=== PATIENT | female | born 1950 | race Caucasian/White ===

== ENCOUNTER 2021-04-11 10:52 | Inpatient (IN) | payer MEDICARE, BC ==
[2021-04-06 15:39] LABS: BASOPHILS % (AUTO) 0.7 % (0-1); EOSINOPHILS # (AUTO) 0.1 X10'3 (0-0.9); EOSINOPHILS % (AUTO) 1.1 % (0-6); HEMATOCRIT 39.4 % (35.0-45.0); HEMOGLOBIN 13.3 g/dl (12.0-16.0); LYMPHOCYTES # (AUTO) 1.3 X10'3 (1.1-4.8); LYMPHOCYTES % (AUTO) 24.9 % (21-51); MEAN CORPUSCULAR HEMOGLOBIN 29.5 PG (27.0-31.0); MEAN CORPUSCULAR HGB CONC 33.8 g/dL (33.0-36.5); MEAN CORPUSCULAR VOLUME 87.3 FL (78-98); MEAN PLATELET VOLUME 7.6 FL (7.4-10.4); MONOCYTES # (AUTO) 0.5 X10'3 (0-0.9); NEUTROPHILS # (AUTO) 3.3 X10'3 (1.8-7.7); NEUTROPHILS % (AUTO) 64.3 % (42-75); PLATELET COUNT 217 X10'3 (140-440); RED BLOOD COUNT 4.52 X10'6 (4.20-5.60); RED CELL DISTRIBUTION WIDTH 14.1 % (11.5-14.5); WHITE BLOOD COUNT 5.1 X10'3 (4.5-11.0)
[2021-04-06 15:47] LABS: ALBUMIN 3.7 G/DL (3.4-5.0); ANION GAP 5 (8-16); BLOOD UREA NITROGEN 24 MG/DL (7-18); BUN/CREATININE RATIO 28.9 (6.6-38.0); CALCIUM 9.2 MG/DL (8.5-10.1); CHLORIDE 104 MMOL/L (99-107); CREATININE 0.83 MG/DL (0.40-0.90); GLUCOSE 97 MG/DL (70-104); SODIUM 139 MMOL/L (135-145); TOTAL CARBON DIOXIDE 29.8 MMOL/L (24-32); eGFR 68 ML/MIN
[2021-04-06 15:49] LABS: APTT 27 SECONDS (22-32)
[~2021-04-11] VITALS: Ht 160 cm; Wt 69.3 kg
[2021-04-11] VITALS (10 sets, daily range): BP systolic 125–164; BP diastolic 66–93
[2021-04-11] MEDS ORDERED: NO HOME MEDS (11:06)
[2021-04-11] MEDS ORDERED: LORazepam 0.5 MG tablet PO PRN (11:20)
[2021-04-11] MEDS ORDERED: diphenhydrAMINE 25mg capsule PO PRN (11:20)
[2021-04-11] MEDS ORDERED: LIDOcaine/PRILOcaine 5gm cream TP ONE (11:30)
[2021-04-11] MEDS: normal saline 1,000 ML IV SCH ×3 (11:31→16:34)
[2021-04-11] MEDS ORDERED: nitroGLYCERIN-Tridil 50MG/D5W 250 ML IV ONE (12:09)
[2021-04-11] MEDS ORDERED: fentaNYL/PF 50MCG/1 ML 2ML syringe ONE (12:10)
[2021-04-11] MEDS ORDERED: midazolam 1 mg/ML 2ml injection ONE (12:10)
[2021-04-11] MEDS ORDERED: verapamil 2.5 mg/ml inj IV ONE (12:10)
[2021-04-11] MEDS ORDERED: LIDOcaine 1% (10mg/ml)w/preservative injection 20ml MDV ONE (12:10)
[2021-04-11] MEDS ORDERED: heparin 1,000unit/ml 10ml vial 10 ML ONE (12:10)
[2021-04-11] MEDS ORDERED: iohexol 350MG/ML 100ml bottle IV ONE (12:10)
[2021-04-11] MEDS ORDERED: iohexol 350 MG/ML 50ML vial IV ONE (13:26)
[2021-04-11] MEDS ORDERED: ondansetron/PF 4mg/2ml inj IV PRN (14:30)
[2021-04-11] MEDS ORDERED: OXAZEpam 15mg capsule PO PRN (14:30)
[2021-04-11] MEDS ORDERED: HYDROcodone/acetaminophen 5mg/325mg tablet PO PRN (14:30)
[2021-04-11] MEDS ORDERED: proCHLORperazine 10 MG/2 ml inj IV PRN (14:30)
[2021-04-11] MEDS ORDERED: HYDROcodone/acetaminophen 10/325mg tab PO PRN (14:30)
--- NOTE | 2021-04-11 16:15 | NUR ---
Report received from Viviane CRUZ. Patient is alert and orientated x4. Right wrist pressure dressing intact. Vital signs stable. Re-enforced to not lift with right hand. Normal saline infusing 100ml/hr as per order.
[2021-04-11 16:59] LABS: ABG BASE EXCESS 0.3 mmol/L (-2.0-2.0); ABG HCO3 24.6 mmol/L (22.0-26.0); ABG OXYGEN SATURATION 96.7 % (94-97); ABG PCO2 (T) 38.7 mmHg (32.0-45.0); ABG PO2 (T) 85.1 mmHg (75.0-100.0); ALLEN'S TEST POSITIVE; FCOHb 0.2 % (0.0-3.9); FMetHb 0.4 % (0.0-1.5); FO2Hb 96.1 % (94-97); TOTAL HEMOGLOBIN 13.5 G/dl (12.0-16.0)
--- NOTE | 2021-04-11 18:00 | NUR ---
Problems reprioritized. Patient report given, questions answered & plan of care reviewed with Janeen CRUZ.
[2021-04-12] VITALS (21 sets, daily range): BP systolic 91–154; BP diastolic 49–89
--- NOTE | 2021-04-12 01:16 | NUR ---
Patient states that she has spoken to anesthesiologist So, Patient states she would like to speak to anesthesiologist before the procedure.
[2021-04-12] MEDS ORDERED: ringers solution, lacted 1,000 ML IV SCH (05:00)
[2021-04-12] MEDS ORDERED: cefazolin/dext.iso 2gm/50ml IV ONE (05:30)
[2021-04-12] MEDS ORDERED: gabapentin 400mg capsule PO ONE (05:30)
[2021-04-12] MEDS ORDERED: VANCOMYCIN INJ 1000 MG in NORMAL SALINE 250ml IV.SOLN IV ONE (05:30)
[2021-04-12] MEDS ORDERED: mupirocin 2% nasal ointment 1gm UD NS ONE (05:30)
[2021-04-12] MEDS ORDERED: metoprolol tartrate 12.5mg (1/2 tablet) PO ONE (05:30)
[2021-04-12] MEDS ORDERED: DOCUMENT DATE & TIME OF BETA-BLOCKER PO ONE (05:30)
[2021-04-12] MEDS ORDERED: dextrose 50%-water 50ml dispensing syringe IV PRN ×2 (05:30→10:50)
[2021-04-12] MEDS ORDERED: insulin glargine (Lantus) pen - multi-dose SQ PRN ×2 (05:30→10:50)
[2021-04-12] MEDS ORDERED: Insulin Reg/NS 100units/100mL 100 ML IV SCH (05:30)
[2021-04-12] MEDS ORDERED: epiNEPHrine 1 mg/ml inj ONE (05:32)
[2021-04-12] MEDS ORDERED: ceFAZolin 1000mg inj ONE (05:32)
--- NOTE | 2021-04-12 05:33 | NUR ---
Metoprolol and Gabapentin taken at 0534 AM
--- NOTE | 2021-04-12 06:05 | NUR ---
Patient in room PCU 3015. I have received report from Janeen CRUZ and had the opportunity to ask questions and assume patient care.
[2021-04-12] MEDS ORDERED: MALTODEXTRIN/FRUCTOSE 0.68 KCAL/ML LIQUID 296ML BOTTLE PO ONE (06:30)
[2021-04-12 07:02] LABS: BASOPHILS % (AUTO) 0.8 % (0-1); EOSINOPHILS # (AUTO) 0.1 X10'3 (0-0.9); EOSINOPHILS % (AUTO) 1.3 % (0-6); HEMATOCRIT 38.5 % (35.0-45.0); HEMOGLOBIN 12.9 g/dl (12.0-16.0); LYMPHOCYTES # (AUTO) 1.4 X10'3 (1.1-4.8); LYMPHOCYTES % (AUTO) 33.3 % (21-51); MEAN CORPUSCULAR HEMOGLOBIN 29.6 PG (27.0-31.0); MEAN CORPUSCULAR HGB CONC 33.6 g/dL (33.0-36.5); MEAN CORPUSCULAR VOLUME 88.1 FL (78-98); MEAN PLATELET VOLUME 7.8 FL (7.4-10.4); MONOCYTES # (AUTO) 0.4 X10'3 (0-0.9); MONOCYTES % (AUTO) 8.4 % (2-12); NEUTROPHILS # (AUTO) 2.4 X10'3 (1.8-7.7); NEUTROPHILS % (AUTO) 56.2 % (42-75); PLATELET COUNT 188 X10'3 (140-440); RED BLOOD COUNT 4.36 X10'6 (4.20-5.60); RED CELL DISTRIBUTION WIDTH 14.5 % (11.5-14.5); WHITE BLOOD COUNT 4.3 X10'3 (4.5-11.0)
[2021-04-12 07:29] LABS: ALBUMIN 3.5 G/DL (3.4-5.0); ANION GAP 4 (8-16); BLOOD UREA NITROGEN 16 MG/DL (7-18); BUN/CREATININE RATIO 27.6 (6.6-38.0); CALCIUM 8.7 MG/DL (8.5-10.1); CHLORIDE 109 MMOL/L (99-107); CHOL/HDL RATIO 3.8 (0.00-4.99); CHOLESTEROL 261 MG/DL (0-200); CREATININE 0.58 MG/DL (0.40-0.90); GLUCOSE 98 MG/DL (70-104); HDL CHOLESTEROL 68 MG/DL (35-60); LDL CHOLESTEROL 142 MG/DL (50-100); SODIUM 142 MMOL/L (135-145); TOTAL CARBON DIOXIDE 28.8 MMOL/L (24-32); TRIGLYCERIDES 103 MG/DL (20-135); eGFR > 90 ML/MIN
[2021-04-12] MEDS ORDERED: LORazepam 2 mg/ml vial ONE (07:30)
--- NOTE | 2021-04-12 07:50 | NUR ---
Pt taken down to [facility]OR by OR team.
[2021-04-12] MEDS ORDERED: NORepinephrine 8 MG in NS 250 ML BAG (32 mcg/ml) IV ONE (07:52)
[2021-04-12] MEDS ORDERED: protamine sulf. 10mg/ml inj. IV ONE (07:52)
[2021-04-12] MEDS ORDERED: isoflurane 100ml inhalation liquid IH ONE (07:52)
[2021-04-12] MEDS ORDERED: nitroGLYCERIN in D5W 50mg/250ml (Tridil) infusion IV ONE (07:52)
[2021-04-12] MEDS ORDERED: SUFENTANIL CITRATE 50 MCG/ML 2ml ampule IV ONE (08:00)
[2021-04-12] MEDS ORDERED: calcium chloride 100 MG/1 ML inj IV ONE (08:00)
[2021-04-12] MEDS ORDERED: heparin 10,000 units/1 ML INJ ONE (08:00)
[2021-04-12] MEDS ORDERED: potassium Cl 2 mEq/ml inj IV ONE (08:00)
[2021-04-12] MEDS ORDERED: sodium bicarbonate (8.4%) 1 mEq/ml syringe ONE (08:00)
[2021-04-12] MEDS ORDERED: methylPREDNISolone sod succ 1000mg vial ONE (08:00)
[2021-04-12] MEDS ORDERED: aminocaproic acid 250 MG/1 ML inj. ONE (08:00)
[2021-04-12] MEDS ORDERED: LIDOcaine 2% (20 mg/ml) 5ml cardiac syringe ONE (08:00)
[2021-04-12] MEDS ORDERED: heparin 1,000 units/ml 10ml inj ONE (08:00)
[2021-04-12] MEDS ORDERED: midazolam 1 mg/ML 2ml injection ONE (08:00)
[2021-04-12] MEDS ORDERED: NORepinephrine bitart. inj. IV ONE (08:00)
[2021-04-12] MEDS ORDERED: magnesium 1 GM/2 ML inj ONE (08:00)
[2021-04-12] MEDS ORDERED: propofol inj 20 ML IV ONE (08:18)
[2021-04-12] MEDS ORDERED: rocuronium 10mg/ml inj IV ONE (08:18)
[2021-04-12] MEDS ORDERED: LIDOcaine 2% (20mg/ml) 5ml vial ONE (08:18)
[2021-04-12 08:46] LABS: ABG BASE EXCESS -0.8 mmol/L (-2.0-2.0); ABG HCO3 22.5 mmol/L (22.0-26.0); ABG PCO2 32.8 mmHg (32.0-45.0); ABG PO2 139.3 mmHg (75.0-100.0); CL (ABG) 108 mmol/L (98-110); FCOHb 0.1 % (0.0-3.9); FMetHb 0.3 % (0.0-1.5); FO2Hb 98.6 % (94-97); GLUCOSE (ABG) 101 mg/dl (70-105); IONIZED CA (ABG) 1.13 mmol/L (1.10-1.43); K (ABG) 3.2 mmol/L (3.5-5.0); TOTAL HEMOGLOBIN 11.3 G/dl (12.0-16.0)
[2021-04-12 09:15] LABS: ACT @ 1.70 U 307 SEC (193-297); ACT @ 2.84 U 462 SEC (260-420); BASELINE ACT 133 SEC (101-148); PATIENT WEIGHT 62.0k KG
[2021-04-12 09:18] LABS: ABG BASE EXCESS 2.6 mmol/L (-2.0-2.0); ABG HCO3 25.9 mmol/L (22.0-26.0); ABG OXYGEN SATURATION 99.5 % (94-97); ABG PCO2 34.4 mmHg (32.0-45.0); ABG PO2 261.7 mmHg (75.0-100.0); CL (ABG) 103 mmol/L (98-110); FCOHb 0.4 % (0.0-3.9); FMetHb 0.3 % (0.0-1.5); FO2Hb 98.8 % (94-97); GLUCOSE (ABG) 85 mg/dl (70-105); IONIZED CA (ABG) 0.97 mmol/L (1.10-1.43); K (ABG) 3.3 mmol/L (3.5-5.0); TOTAL HEMOGLOBIN 7.9 G/dl (12.0-16.0)
[2021-04-12] MEDS ORDERED: albuterol 2.5 MG/3 ML nebule NEB PRN (09:20)
[2021-04-12 09:38] LABS: ABG BASE EXCESS VENOUS 1.6 mmol/L (-2.0 - 2.0); ABG HCO3 VENOUS 28.4 mmol/L (21.0-28.0); ABG PCO2 VENOUS 57.6 mmHg (38.0-51.0); ABG PO2 VENOUS 52.7 mmHg (25.0-35.0); CL (ABG) 104 mmol/L (98-110); FCOHb VENOUS 0.8 % (0.0- 3.9); FHHb VENOUS 15.5 %; FMetHb VENOUS 0.3 % (0.0 - 0.5); FO2Hb VENOUS 83.4 %; GLUCOSE (ABG) 115 mg/dl (70-105); IONIZED CA (ABG) 1.04 mmol/L (1.10-1.43); K (ABG) 4.2 mmol/L (3.5-5.0); TOTAL HEMOGLOBIN 8.2 G/dl (12.0-16.0)
[2021-04-12 10:12] LABS: ABG BASE EXCESS 1.3 mmol/L (-2.0-2.0); ABG HCO3 24.6 mmol/L (22.0-26.0); ABG OXYGEN SATURATION 99.7 % (94-97); ABG PCO2 33.3 mmHg (32.0-45.0); ABG PO2 239.1 mmHg (75.0-100.0); CL (ABG) 106 mmol/L (98-110); FCOHb 0.4 % (0.0-3.9); FMetHb 0.3 % (0.0-1.5); GLUCOSE (ABG) 139 mg/dl (70-105); IONIZED CA (ABG) 1.02 mmol/L (1.10-1.43); K (ABG) 4.5 mmol/L (3.5-5.0); TOTAL HEMOGLOBIN 8.8 G/dl (12.0-16.0)
[2021-04-12 10:44] LABS: ABG HCO3 22.9 mmol/L (22.0-26.0); ABG OXYGEN SATURATION 99.3 % (94-97); ABG PCO2 30.5 mmHg (32.0-45.0); ABG PO2 167.5 mmHg (75.0-100.0); CL (ABG) 106 mmol/L (98-110); FCOHb 0.8 % (0.0-3.9); FMetHb 0.3 % (0.0-1.5); FO2Hb 98.2 % (94-97); GLUCOSE (ABG) 147 mg/dl (70-105); IONIZED CA (ABG) 1.25 mmol/L (1.10-1.43); K (ABG) 4.3 mmol/L (3.5-5.0); TOTAL HEMOGLOBIN 8.1 G/dl (12.0-16.0)
[2021-04-12 10:47] LABS: ACTIVATED CLOTTING TIME 105 SEC (101-148)
[2021-04-12] MEDS ORDERED: magnesium citrate 296ml oral solution PO PRN (10:50)
[2021-04-12] MEDS ORDERED: sodium chloride 0.45% 1,000 ML IV SCH (10:50)
[2021-04-12] MEDS ORDERED: bisacodyl 10mg suppository rectal RC PRN (10:50)
[2021-04-12] MEDS ORDERED: acetaminophen 325mg tablet PO PRN ×2 (10:50)
[2021-04-12] MEDS ORDERED: magnesium hydroxide 30ml (MOM) UD suspension PO PRN (10:50)
[2021-04-12] MEDS ORDERED: ondansetron/PF 4mg/2ml inj IV PRN (10:50)
[2021-04-12] MEDS ORDERED: potassium Cl 20 mEq SR tablet PO PRN (10:50)
[2021-04-12] MEDS ORDERED: NORepinephrine 8mg/ 250ml NS 250 ML IV PRN (10:50)
[2021-04-12] MEDS ORDERED: metoclopramide 5 mg/ml inj IV PRN (10:50)
[2021-04-12] MEDS ORDERED: niCARDipine-NS 40mg/200ml IVPB 200 ML IV PRN (10:50)
[2021-04-12] MEDS ORDERED: potassium CL 10mEq/100ml bag 100 ML IV PRN (10:50)
[2021-04-12] MEDS ORDERED: magnesium 2GM in 50ml NS 50 ML IV PRN (10:50)
[2021-04-12] MEDS ORDERED: HYDROcodone/acetaminophen 10/325mg tab PO PRN (10:50)
[2021-04-12] MEDS ORDERED: mineral oil 133ml enema RC PRN (10:50)
[2021-04-12] MEDS ORDERED: magnesium 4gm in 100ml NS 100 ML IV PRN (10:50)
[2021-04-12] MEDS ORDERED: normal saline 250ml IV soln 250 ML IV PRN (10:50)
[2021-04-12] MEDS ORDERED: morphine 4 MG/ML inj SYRINge IV PRN (10:50)
[2021-04-12] MEDS ORDERED: DOPamine 400mg/D5W 250ml 250 ML IV PRN (10:50)
[2021-04-12] MEDS ORDERED: sodium phosphate inj. 15 MMOL in dextrose 5%-water 250 ML IV PRN (10:50)
[2021-04-12] MEDS ORDERED: sodium phosphate inj. 30 MMOL in dextrose 5%-water 250 ML IV PRN (10:50)
[2021-04-12] MEDS ORDERED: Neutra Phos packet PO PRN (10:50)
--- NOTE | 2021-04-12 11:15 | NUR ---
Received to room 2043, accompanied by MDs and surgical crew. Placed on ventilator, to cardiac technologist, arterial line and PA line pressure monitored. Chest tubes to suction at 20 cm. Sosa cath to gravity drainage. Dressings are dry and intact. See assessment record. All vasoactive drugs are infusing via central line.
[2021-04-12 11:34] LABS: ABG BASE EXCESS -0.3 mmol/L (-2.0-2.0); ABG HCO3 23.8 mmol/L (22.0-26.0); ABG OXYGEN SATURATION 99.2 % (94-97); ABG PCO2 (T) 36.2 mmHg (32.0-45.0); ABG PO2 (T) 201.3 mmHg (75.0-100.0); FCOHb 0.1 % (0.0-3.9); FMetHb 0.3 % (0.0-1.5); FO2Hb 98.8 % (94-97); PATIENT TEMPERATURE 36.4; PEEP 5 cm H2O; RESPIRATORY RATE 12 b/min; TIDAL VOLUME 450 mL; TOTAL HEMOGLOBIN 13.7 G/dl (12.0-16.0)
[2021-04-12 11:51] LABS: BASOPHILS % (AUTO) 0.1 % (0-1); EOSINOPHILS # (AUTO) 0.1 X10'3 (0-0.9); EOSINOPHILS % (AUTO) 0.6 % (0-6); HEMATOCRIT 37.4 % (35.0-45.0); HEMOGLOBIN 12.7 g/dl (12.0-16.0); LYMPHOCYTES # (AUTO) 0.7 X10'3 (1.1-4.8); LYMPHOCYTES % (AUTO) 8.7 % (21-51); MEAN CORPUSCULAR HEMOGLOBIN 29.6 PG (27.0-31.0); MEAN CORPUSCULAR HGB CONC 34.1 g/dL (33.0-36.5); MEAN CORPUSCULAR VOLUME 86.9 FL (78-98); MEAN PLATELET VOLUME 7.8 FL (7.4-10.4); MONOCYTES # (AUTO) 0.3 X10'3 (0-0.9); MONOCYTES % (AUTO) 4.2 % (2-12); NEUTROPHILS # (AUTO) 6.9 X10'3 (1.8-7.7); NEUTROPHILS % (AUTO) 86.4 % (42-75); PLATELET COUNT 126 X10'3 (140-440); RED CELL DISTRIBUTION WIDTH 14.4 % (11.5-14.5); WHITE BLOOD COUNT 7.9 X10'3 (4.5-11.0)
[2021-04-12] MEDS: Insulin Reg/NS 100units/100mL 100 ML IV SCH (12:02)
[2021-04-12 12:03] LABS: APTT 29 SECONDS (22-32)
[2021-04-12 12:14] LABS: ALANINE AMINOTRANSFERASE 40 U/L (12-78); ALBUMIN/GLOBULIN RATIO 1.8 (1.1-1.5); ALKALINE PHOSPHATASE 59 IU/L (46-116); ANION GAP 7 (8-16); ASPARTATE AMINO TRANSFERASE 68 U/L (10-37); BILIRUBIN,TOTAL 0.9 MG/DL (0.1-1.0); BLOOD UREA NITROGEN 13 MG/DL (7-18); BUN/CREATININE RATIO 23.2 (6.6-38.0); CALCIUM 8.5 MG/DL (8.5-10.1); CHLORIDE 109 MMOL/L (99-107); CREATININE 0.56 MG/DL (0.40-0.90); GLUCOSE 154 MG/DL (70-104); MAGNESIUM 3.7 MG/DL (1.5-2.4); PHOSPHORUS 2.1 MG/DL (2.3-4.5); POTASSIUM 4.1 MMOL/L (3.5-5.1); SODIUM 141 MMOL/L (135-145); TOTAL CARBON DIOXIDE 25.1 MMOL/L (24-32); TOTAL PROTEIN 4.7 G/DL (6.4-8.2); eGFR > 90 ML/MIN
[2021-04-12] MEDS: gabapentin 300mg capsule PO SCH ×2 (12:26→20:44)
--- NOTE | 2021-04-12 12:34 | NUR ---
Nutrition consult: Pt s/p MVR and left atrial MAZE procedure today. Pt would benefit from protein education once stable. Will continue to follow. Addendum: 04/12/21 at [address] Amended: Links added.
[2021-04-12] MEDS: potassium Cl 20mEq/100mL bag 100 ML IV PRN ×3 (12:36→18:28)
[2021-04-12] MEDS: albumin (Human) 5% 250ml 250 ML IV PRN ×2 (12:42→13:45)
[2021-04-12] MEDS: normal saline 1,000 ML IV SCH (14:24)
[2021-04-12] MEDS: ceFAZolin/D5W- 1GM premix 50 ML IV SCH (16:33)
[2021-04-12 17:38] LABS: BASOPHILS % (AUTO) 0.1 % (0-1); EOSINOPHILS % (AUTO) 0 % (0-6); HEMATOCRIT 34.5 % (35.0-45.0); HEMOGLOBIN 11.6 g/dl (12.0-16.0); LYMPHOCYTES # (AUTO) 0.2 X10'3 (1.1-4.8); LYMPHOCYTES % (AUTO) 1.8 % (21-51); MEAN CORPUSCULAR HEMOGLOBIN 29.6 PG (27.0-31.0); MEAN CORPUSCULAR HGB CONC 33.6 g/dL (33.0-36.5); MEAN CORPUSCULAR VOLUME 88.1 FL (78-98); MONOCYTES # (AUTO) 0.4 X10'3 (0-0.9); MONOCYTES % (AUTO) 3.6 % (2-12); NEUTROPHILS # (AUTO) 10.4 X10'3 (1.8-7.7); NEUTROPHILS % (AUTO) 94.5 % (42-75); PLATELET COUNT 103 X10'3 (140-440); RED BLOOD COUNT 3.91 X10'6 (4.20-5.60); RED CELL DISTRIBUTION WIDTH 14.5 % (11.5-14.5); WHITE BLOOD COUNT 11.1 X10'3 (4.5-11.0)
[2021-04-12 17:58] LABS: ALBUMIN 3.6 G/DL (3.4-5.0); ANION GAP 9 (8-16); BLOOD UREA NITROGEN 14 MG/DL (7-18); BUN/CREATININE RATIO 17.5 (6.6-38.0); CHLORIDE 110 MMOL/L (99-107); GLUCOSE 178 MG/DL (70-104); MAGNESIUM 2.7 MG/DL (1.5-2.4); PHOSPHORUS 3.5 MG/DL (2.3-4.5); POTASSIUM 3.9 MMOL/L (3.5-5.1); SODIUM 143 MMOL/L (135-145); TOTAL CARBON DIOXIDE 23.6 MMOL/L (24-32); eGFR 71 ML/MIN
--- NOTE | 2021-04-12 18:12 | NUR ---
Problems reprioritized. Patient report given, questions answered & plan of care reviewed with Holly CRUZ.
[2021-04-12 19:35] LABS: ABG BASE EXCESS -5.2 mmol/L (-2.0-2.0); ABG OXYGEN SATURATION 96.5 % (94-97); ABG PCO2 (T) 33.1 mmHg (32.0-45.0); ABG PO2 (T) 93.7 mmHg (75.0-100.0); ALLEN'S TEST POSITIVE; FCOHb 0.3 % (0.0-3.9); FMetHb 0.3 % (0.0-1.5); FO2Hb 95.9 % (94-97); PATIENT TEMPERATURE 37.4; PEEP 5 cm H2O; TOTAL HEMOGLOBIN 12.1 G/dl (12.0-16.0)
[2021-04-12] MEDS: sennosides/docusate sodium tablet PO SCH (20:00)
[2021-04-12] MEDS ORDERED: pantoprazole 40MG/D5 100ML BAG 100 ML IV SCH (20:00)
[2021-04-12] MEDS: pantoprazole 40MG/NS 100ML BAG 100 ML IV SCH (20:43)
[2021-04-12] MEDS: vancomycin/NS 1 GM ADD-VANTAGE 250 ML IV SCH (20:43)
[2021-04-12] MEDS: atorvastatin 10mg tablet PO SCH (20:44)
[2021-04-12] MEDS: mupirocin 2% nasal ointment 1gm UD NS SCH (20:44)
[2021-04-13] VITALS (25 sets, daily range): BP systolic 92–126; BP diastolic 45–71
[2021-04-13] MEDS: ceFAZolin/D5W- 1GM premix 50 ML IV SCH ×3 (00:46→15:59)
[2021-04-13 02:39] LABS: BASOPHILS % (AUTO) 0 % (0-1); EOSINOPHILS % (AUTO) 0 % (0-6); HEMATOCRIT 31.2 % (35.0-45.0); HEMOGLOBIN 10.6 g/dl (12.0-16.0); LYMPHOCYTES # (AUTO) 0.4 X10'3 (1.1-4.8); LYMPHOCYTES % (AUTO) 4.6 % (21-51); MEAN CORPUSCULAR HGB CONC 34.2 g/dL (33.0-36.5); MEAN CORPUSCULAR VOLUME 87.7 FL (78-98); MONOCYTES # (AUTO) 0.6 X10'3 (0-0.9); MONOCYTES % (AUTO) 6.4 % (2-12); NEUTROPHILS # (AUTO) 8.7 X10'3 (1.8-7.7); PLATELET COUNT 88 X10'3 (140-440); RED BLOOD COUNT 3.56 X10'6 (4.20-5.60); RED CELL DISTRIBUTION WIDTH 14.5 % (11.5-14.5); WHITE BLOOD COUNT 9.8 X10'3 (4.5-11.0)
[2021-04-13 02:52] LABS: APTT 29 SECONDS (22-32)
[2021-04-13] MEDS: morphine 2 MG/ML inj. syringe IV PRN ×2 (03:04→20:30)
[2021-04-13 03:08] LABS: ALANINE AMINOTRANSFERASE 219 U/L (12-78); ALBUMIN 3.1 G/DL (3.4-5.0); ALBUMIN/GLOBULIN RATIO 1.7 (1.1-1.5); ALKALINE PHOSPHATASE 62 IU/L (46-116); ANION GAP 9 (8-16); ASPARTATE AMINO TRANSFERASE 238 U/L (10-37); BILIRUBIN,TOTAL 0.5 MG/DL (0.1-1.0); BLOOD UREA NITROGEN 12 MG/DL (7-18); BUN/CREATININE RATIO 16.4 (6.6-38.0); CALCIUM 7.6 MG/DL (8.5-10.1); CHLORIDE 111 MMOL/L (99-107); CREATININE 0.73 MG/DL (0.40-0.90); GLUCOSE 122 MG/DL (70-104); MAGNESIUM 2.4 MG/DL (1.5-2.4); PHOSPHORUS 3.4 MG/DL (2.3-4.5); POTASSIUM 3.9 MMOL/L (3.5-5.1); SODIUM 143 MMOL/L (135-145); TOTAL CARBON DIOXIDE 23.1 MMOL/L (24-32); TOTAL PROTEIN 4.9 G/DL (6.4-8.2); eGFR 79 ML/MIN
[2021-04-13] MEDS: normal saline 1,000 ML IV SCH ×3 (03:20→15:56)
[2021-04-13] MEDS: potassium Cl 20mEq/100mL bag 100 ML IV PRN ×2 (03:52→05:01)
[2021-04-13] MEDS: metoprolol tartrate 12.5mg (1/2 tablet) PO SCH ×2 (08:00→20:27)
[2021-04-13] MEDS: vancomycin/NS 1 GM ADD-VANTAGE 250 ML IV SCH ×2 (08:21→20:26)
[2021-04-13] MEDS: pantoprazole 40MG/NS 100ML BAG 100 ML IV SCH ×2 (08:21→20:26)
[2021-04-13] MEDS: mupirocin 2% nasal ointment 1gm UD NS SCH ×2 (08:21→20:27)
[2021-04-13] MEDS: gabapentin 300mg capsule PO SCH ×3 (08:22→20:27)
[2021-04-13] MEDS: sennosides/docusate sodium tablet PO SCH ×2 (08:22→20:27)
[2021-04-13] MEDS: aspirin 325mg tablet, delayed-release (Ecotrin) PO SCH (08:22)
[2021-04-13] MEDS: Insulin Reg/NS 100units/100mL 100 ML IV SCH (20:10)
[2021-04-13] MEDS: atorvastatin 10mg tablet PO SCH (20:27)
[2021-04-14] VITALS (13 sets, daily range): BP systolic 87–114; BP diastolic 41–60
[2021-04-14] MEDS: ceFAZolin/D5W- 1GM premix 50 ML IV SCH (00:24)
[2021-04-14] MEDS: HYDROcodone/acetaminophen 10/325mg tab PO PRN (02:32)
[2021-04-14] MEDS: morphine 2 MG/ML inj. syringe IV PRN (02:33)
[2021-04-14 03:31] LABS: BASOPHILS % (AUTO) 0 % (0-1); EOSINOPHILS % (AUTO) 0 % (0-6); HEMATOCRIT 29.3 % (35.0-45.0); HEMOGLOBIN 9.8 g/dl (12.0-16.0); LYMPHOCYTES # (AUTO) 0.8 X10'3 (1.1-4.8); LYMPHOCYTES % (AUTO) 7.8 % (21-51); MEAN CORPUSCULAR HEMOGLOBIN 29.5 PG (27.0-31.0); MEAN CORPUSCULAR HGB CONC 33.4 g/dL (33.0-36.5); MEAN CORPUSCULAR VOLUME 88.2 FL (78-98); MEAN PLATELET VOLUME 8.3 FL (7.4-10.4); MONOCYTES # (AUTO) 0.5 X10'3 (0-0.9); MONOCYTES % (AUTO) 5.1 % (2-12); NEUTROPHILS # (AUTO) 8.9 X10'3 (1.8-7.7); NEUTROPHILS % (AUTO) 87.1 % (42-75); PLATELET COUNT 77 X10'3 (140-440); RED BLOOD COUNT 3.32 X10'6 (4.20-5.60); RED CELL DISTRIBUTION WIDTH 14.8 % (11.5-14.5); WHITE BLOOD COUNT 10.2 X10'3 (4.5-11.0)
[2021-04-14 03:50] LABS: ALBUMIN 2.7 G/DL (3.4-5.0); ANION GAP 7 (8-16); BLOOD UREA NITROGEN 16 MG/DL (7-18); BUN/CREATININE RATIO 25.8 (6.6-38.0); CALCIUM 7.8 MG/DL (8.5-10.1); CHLORIDE 108 MMOL/L (99-107); CREATININE 0.62 MG/DL (0.40-0.90); GLUCOSE 134 MG/DL (70-104); MAGNESIUM 2.1 MG/DL (1.5-2.4); PHOSPHORUS 2.5 MG/DL (2.3-4.5); POTASSIUM 4.2 MMOL/L (3.5-5.1); SODIUM 141 MMOL/L (135-145); TOTAL CARBON DIOXIDE 26.2 MMOL/L (24-32); eGFR > 90 ML/MIN
--- NOTE | 2021-04-14 06:33 | NUR ---
Problems reprioritized. Patient report given, questions answered & plan of care reviewed with NANCY Sequeira.
[2021-04-14] MEDS ORDERED: magnesium 4gm in 100ml NS 100 ML IV PRN (07:10)
[2021-04-14] MEDS ORDERED: potassium Cl 40MEQ/1/2NS 520ml 520 ML IV PRN (07:10)
[2021-04-14] MEDS ORDERED: potassium CL 10mEq/100ml bag 100 ML IV PRN (07:10)
[2021-04-14] MEDS ORDERED: magnesium 2GM in 50ml NS 50 ML IV PRN (07:10)
[2021-04-14] MEDS ORDERED: potassium Cl 40MEQ/250ML bag 250 ML IV PRN (07:10)
[2021-04-14] MEDS ORDERED: potassium Cl 20 mEq SR tablet PO PRN (07:10)
[2021-04-14] MEDS ORDERED: potassium Cl 20mEq/100mL bag 100 ML IV PRN (07:10)
[2021-04-14] MEDS ORDERED: pantoprazole 40mg Tablet.DR PO SCH (07:30)
[2021-04-14] MEDS ORDERED: furosemide 40mg/4ml inj IV ONE (07:55)
[2021-04-14] MEDS: potassium Cl 20 mEq SR tablet PO SCH ×2 (08:00→19:11)
[2021-04-14] MEDS: aspirin 325mg tablet, delayed-release (Ecotrin) PO SCH (08:41)
[2021-04-14] MEDS: magnesium Cl slow-release 64mg tablet PO SCH ×2 (08:41→19:10)
[2021-04-14] MEDS: gabapentin 300mg capsule PO SCH (08:41)
[2021-04-14] MEDS: sennosides/docusate sodium tablet PO SCH ×2 (08:42→19:10)
[2021-04-14] MEDS: metoprolol tartrate 12.5mg (1/2 tablet) PO SCH ×2 (08:42→19:31)
[2021-04-14] MEDS: heparin, porcine 5000 units/ml vial SQ SCH ×2 (08:43→19:12)
[2021-04-14] MEDS: mupirocin 2% nasal ointment 1gm UD NS SCH (08:43)
[2021-04-14] MEDS: pantoprazole 40mg Tablet.DR PO SCH (09:30)
--- NOTE | 2021-04-14 12:55 | NUR ---
F/u 04/14: Pt seen by MARTY for written/verbal high protein ed w/ RD contact information provided. Pt reports appetite fair though admittedly lower post-op but typically eats high-protein diet at home; no food preferences at this time. Pt reports taking multivitamin/mineral at home. RD reviewed appropriate protein supplement options at home and encouraged pt to contact dietitian's office if further questions/concerns. Addendum: 04/14/21 at [address] Amended: Links added.
[2021-04-14] MEDS: atorvastatin 10mg tablet PO SCH (19:31)
[2021-04-15 06:00] VITALS: BP 109/49
[2021-04-15 07:35] LABS: BASOPHILS % (AUTO) 0.2 % (0-1); EOSINOPHILS % (AUTO) 0.2 % (0-6); HEMATOCRIT 28.1 % (35.0-45.0); HEMOGLOBIN 9.5 g/dl (12.0-16.0); LYMPHOCYTES # (AUTO) 0.9 X10'3 (1.1-4.8); LYMPHOCYTES % (AUTO) 15.5 % (21-51); MEAN CORPUSCULAR HEMOGLOBIN 29.8 PG (27.0-31.0); MEAN CORPUSCULAR HGB CONC 33.9 g/dL (33.0-36.5); MEAN CORPUSCULAR VOLUME 88.1 FL (78-98); MEAN PLATELET VOLUME 8.3 FL (7.4-10.4); MONOCYTES # (AUTO) 0.4 X10'3 (0-0.9); MONOCYTES % (AUTO) 7.3 % (2-12); NEUTROPHILS # (AUTO) 4.5 X10'3 (1.8-7.7); NEUTROPHILS % (AUTO) 76.8 % (42-75); PLATELET COUNT 75 X10'3 (140-440); RED BLOOD COUNT 3.19 X10'6 (4.20-5.60); RED CELL DISTRIBUTION WIDTH 14.3 % (11.5-14.5); WHITE BLOOD COUNT 5.9 X10'3 (4.5-11.0)
[2021-04-15 07:51] LABS: ALBUMIN 2.6 G/DL (3.4-5.0); ANION GAP 0 (8-16); BLOOD UREA NITROGEN 19 MG/DL (7-18); BUN/CREATININE RATIO 33.3 (6.6-38.0); CALCIUM 7.8 MG/DL (8.5-10.1); CHLORIDE 108 MMOL/L (99-107); CREATININE 0.57 MG/DL (0.40-0.90); GLUCOSE 103 MG/DL (70-104); POTASSIUM 4.1 MMOL/L (3.5-5.1); SODIUM 141 MMOL/L (135-145); eGFR > 90 ML/MIN
[2021-04-15] MEDS: metoprolol tartrate 12.5mg (1/2 tablet) PO SCH ×2 (08:00→20:47)
[2021-04-15] MEDS: magnesium Cl slow-release 64mg tablet PO SCH ×2 (09:06→20:46)
[2021-04-15] MEDS: aspirin 325mg tablet, delayed-release (Ecotrin) PO SCH (09:06)
[2021-04-15] MEDS: potassium Cl 20 mEq SR tablet PO SCH ×2 (09:06→20:46)
[2021-04-15] MEDS: sennosides/docusate sodium tablet PO SCH ×2 (09:07→20:46)
[2021-04-15] MEDS: heparin, porcine 5000 units/ml vial SQ SCH ×2 (09:10→20:47)
[2021-04-15] MEDS ORDERED: furosemide 20 MG/2 ML vial IV ONE (10:45)
[2021-04-15 11:00] VITALS: BP 106/54
[2021-04-15] MEDS ORDERED: meclizine 12.5mg tablet PO PRN (11:30)
[2021-04-15 15:00] VITALS: BP 109/54
[2021-04-15 18:00] VITALS: BP 125/66
[2021-04-15] MEDS: HYDROcodone/acetaminophen 10/325mg tab PO PRN (20:46)
[2021-04-15] MEDS: atorvastatin 10mg tablet PO SCH (20:47)
[2021-04-15 22:00] VITALS: BP 111/53
[2021-04-16 02:00] VITALS: BP 117/75
[2021-04-16 06:39] LABS: BASOPHILS % (AUTO) 0.5 % (0-1); EOSINOPHILS # (AUTO) 0.1 X10'3 (0-0.9); HEMATOCRIT 30.1 % (35.0-45.0); HEMOGLOBIN 10.1 g/dl (12.0-16.0); LYMPHOCYTES # (AUTO) 1.1 X10'3 (1.1-4.8); LYMPHOCYTES % (AUTO) 21.4 % (21-51); MEAN CORPUSCULAR HEMOGLOBIN 29.5 PG (27.0-31.0); MEAN CORPUSCULAR HGB CONC 33.5 g/dL (33.0-36.5); MEAN CORPUSCULAR VOLUME 88.1 FL (78-98); MEAN PLATELET VOLUME 8.3 FL (7.4-10.4); MONOCYTES # (AUTO) 0.4 X10'3 (0-0.9); NEUTROPHILS # (AUTO) 3.4 X10'3 (1.8-7.7); NEUTROPHILS % (AUTO) 69.1 % (42-75); PLATELET COUNT 110 X10'3 (140-440); RED BLOOD COUNT 3.42 X10'6 (4.20-5.60); RED CELL DISTRIBUTION WIDTH 13.9 % (11.5-14.5); WHITE BLOOD COUNT 4.9 X10'3 (4.5-11.0)
[2021-04-16 06:52] LABS: ALBUMIN 2.8 G/DL (3.4-5.0); ANION GAP 2 (8-16); BLOOD UREA NITROGEN 13 MG/DL (7-18); BUN/CREATININE RATIO 21.7 (6.6-38.0); CALCIUM 8.1 MG/DL (8.5-10.1); CHLORIDE 105 MMOL/L (99-107); GLUCOSE 101 MG/DL (70-104); SODIUM 140 MMOL/L (135-145); TOTAL CARBON DIOXIDE 32.6 MMOL/L (24-32); eGFR > 90 ML/MIN
[2021-04-16 07:00] VITALS: BP 131/67
[2021-04-16] MEDS: magnesium Cl slow-release 64mg tablet PO SCH ×2 (08:25→20:09)
[2021-04-16] MEDS: pantoprazole 40mg Tablet.DR PO SCH (08:25)
[2021-04-16] MEDS: aspirin 325mg tablet, delayed-release (Ecotrin) PO SCH (08:25)
[2021-04-16] MEDS: potassium Cl 20 mEq SR tablet PO SCH ×2 (08:28→20:09)
[2021-04-16] MEDS: metoprolol tartrate 12.5mg (1/2 tablet) PO SCH ×2 (08:28→20:10)
[2021-04-16] MEDS: heparin, porcine 5000 units/ml vial SQ SCH ×2 (08:34→20:09)
[2021-04-16] MEDS: sennosides/docusate sodium tablet PO SCH ×2 (08:35→20:09)
--- NOTE | 2021-04-16 09:08 | NUR ---
Initial: Pt s/p MVR and left atrial MAZE procedure 04/12 per EMR. Currently w/ low PO intake on NCS diet, avg 47% x 7 meals, though pt has been feeling nauseas per MD note. Pt may benefit from Danilo smoothies BID for wound healing. LBM 04/15 per MD note, receiving routine senna. Will continue to monitor and make recommendations as appropriate. Recs: 1. Continue NCS diet as tolerated 2. Danilo smoothies BIDBD; pending MD verification 3. Bowel care per rx 4. Weekly wts Addendum: 04/16/21 at [address] Amended: Links added.
[2021-04-16 11:00] VITALS: BP 123/47
[2021-04-16 15:00] VITALS: BP 128/71
--- NOTE | 2021-04-16 18:20 | NUR ---
Patient in room PCU 3020. I have received report from NANCY Ponce and had the opportunity to ask questions and assume patient care.
[2021-04-16] MEDS: JUVEN Smoothie Arginine/Glut./Ca2+Bmb (Juven 19.3pkt) 240ml cup PO SCH (18:30)
--- NOTE | 2021-04-16 18:45 | NUR ---
Problems reprioritized. Patient report given, questions answered & plan of care reviewed with Lyn.
[2021-04-16 18:50] VITALS: BP 128/71
[2021-04-16] MEDS: atorvastatin 10mg tablet PO SCH (20:10)
[2021-04-16 22:00] VITALS: BP 129/56
[2021-04-17 02:00] VITALS: BP 116/63
[2021-04-17 06:00] VITALS: BP 127/66
--- NOTE | 2021-04-17 06:27 | NUR ---
Problems reprioritized. Patient report given, questions answered & plan of care reviewed with NANCY Ponce.
[2021-04-17 06:46] LABS: BASOPHILS % (AUTO) 0.6 % (0-1); EOSINOPHILS # (AUTO) 0.1 X10'3 (0-0.9); EOSINOPHILS % (AUTO) 1.7 % (0-6); HEMOGLOBIN 10.9 g/dl (12.0-16.0)
[2021-04-17 06:48] LABS: HEMATOCRIT 32.2 % (35.0-45.0); LYMPHOCYTES # (AUTO) 1.2 X10'3 (1.1-4.8); LYMPHOCYTES % (AUTO) 26.6 % (21-51); MEAN CORPUSCULAR HEMOGLOBIN 30.1 PG (27.0-31.0); MEAN CORPUSCULAR HGB CONC 33.8 g/dL (33.0-36.5); MEAN CORPUSCULAR VOLUME 88.9 FL (78-98); MEAN PLATELET VOLUME 7.8 FL (7.4-10.4); MONOCYTES # (AUTO) 0.5 X10'3 (0-0.9); MONOCYTES % (AUTO) 10.1 % (2-12); NEUTROPHILS # (AUTO) 2.8 X10'3 (1.8-7.7); PLATELET COUNT 164 X10'3 (140-440); RED BLOOD COUNT 3.62 X10'6 (4.20-5.60); RED CELL DISTRIBUTION WIDTH 14.2 % (11.5-14.5); WHITE BLOOD COUNT 4.6 X10'3 (4.5-11.0)
[2021-04-17] MEDS: JUVEN Smoothie Arginine/Glut./Ca2+Bmb (Juven 19.3pkt) 240ml cup PO SCH (07:30)
[2021-04-17 07:34] LABS: ALBUMIN 2.9 G/DL (3.4-5.0); ANION GAP 5 (8-16); BLOOD UREA NITROGEN 13 MG/DL (7-18); BUN/CREATININE RATIO 19.4 (6.6-38.0); CALCIUM 8.7 MG/DL (8.5-10.1); CHLORIDE 107 MMOL/L (99-107); CREATININE 0.67 MG/DL (0.40-0.90); GLUCOSE 99 MG/DL (70-104); POTASSIUM 4.7 MMOL/L (3.5-5.1); SODIUM 143 MMOL/L (135-145); TOTAL CARBON DIOXIDE 31.5 MMOL/L (24-32); eGFR 87 ML/MIN
[2021-04-17] MEDS: potassium Cl 20 mEq SR tablet PO SCH (08:00)
[2021-04-17] MEDS: sennosides/docusate sodium tablet PO SCH (08:00)
[2021-04-17] MEDS: magnesium Cl slow-release 64mg tablet PO SCH (08:00)
[2021-04-17] MEDS: pantoprazole 40mg Tablet.DR PO SCH (08:00)
[2021-04-17] MEDS: heparin, porcine 5000 units/ml vial SQ SCH (08:00)
[2021-04-17] MEDS ORDERED: ASPI-1071 PO (08:02)
[2021-04-17] MEDS ORDERED: HYDR-3972 PO (08:02)
[2021-04-17] MEDS ORDERED: PANT40TA54 PO (08:02)
[2021-04-17] MEDS ORDERED: ATOR10TA PO (08:02)
[2021-04-17] MEDS ORDERED: LOP12.5T PO (08:02)
[2021-04-17 09:44] VITALS: BP_SYST 112
[2021-04-17] MEDS: metoprolol tartrate 12.5mg (1/2 tablet) PO SCH (09:44)
[2021-04-17] MEDS: aspirin 325mg tablet, delayed-release (Ecotrin) PO SCH (09:44)
--- NOTE | 2021-04-17 14:06 | NUR ---
Patient vitals were stable and she was transported in the wheelchair with her son.
[2021-04-26] MEDS ORDERED: HYDR-3965 PO (08:24)
== END 2021-04-17 13:54 | disposition home or self-care (01) | DRG 218 ==
LOC: SSTAY O 10:52 → PCU 3S 16:50 → SSTAY O 04-12 10:54 → ICU 2S 04-12 10:55 → PCU 3S 04-14 10:04
PROVIDERS: ADMIT Internal Medicine Interventional Cardiology; ATTEND Internal Medicine Interventional Cardiology
PROC: 4A023N7 Measurement of Cardiac Sampling and Pressure, Left Heart, Percutaneous Approach (ICD-10-PCS; 2021-04-11)
PROC: 02B70ZK Excision of Left Atrial Appendage, Open Approach (ICD-10-PCS; 2021-04-11)
PROC: B2111ZZ Fluoroscopy of Multiple Coronary Arteries using Low Osmolar Contrast (ICD-10-PCS; 2021-04-11)
PROC: B2151ZZ Fluoroscopy of Left Heart using Low Osmolar Contrast (ICD-10-PCS; 2021-04-11)
PROC: 02BG0ZZ Excision of Mitral Valve, Open Approach (ICD-10-PCS; 2021-04-12)
PROC: 02580ZZ Destruction of Conduction Mechanism, Open Approach (ICD-10-PCS; 2021-04-12)
PROC: 5A1221Z Performance of Cardiac Output, Continuous (ICD-10-PCS; 2021-04-12)
PROC: 02UG0JZ Supplement Mitral Valve with Synthetic Substitute, Open Approach (ICD-10-PCS; principal; 2021-04-12 07:52)
DX: I34.0 Nonrheumatic mitral (valve) insufficiency (principal); I48.0 Paroxysmal atrial fibrillation; I34.1 Nonrheumatic mitral (valve) prolapse; M54.2 Cervicalgia; M54.9 Dorsalgia, unspecified; R11.0 Nausea
CPT/HCPCS: 0232T; 36415; 36600; 71045; 80048; 80053; 80061; 82330; 82435; 82803; 82947; 82948; 83735; 84100; 84132; 84295; 85018; 85025; 85347; 85384; 85610; 85730; 86885; 86900; 86901; 86920; 87081; 88300; 93005; 93306; 93312; 93325; 93458; 94002; 94010; 94760; 97110; 97116; 97162; 97530; 99152; 99153; A4618; A4620; A4663; A6258; A6449; A7000; A7048; C1751; C1769; C1894; C9113; G0378; J0171; J0690; J1644; J1815; J1940; J2060; J2150; J2250; J2270; J2405; J2704; J2720; J2765; J2930; J3010; J3370; J3475; J3480; J3490; J7030; J7040; J7050; J7060; J7120; J8597; P9045; Q0163; Q9967